=== PATIENT | female | born 1975 | race Caucasian/White ===

== ENCOUNTER → 2018-11-15 | Outpatient (CLI) | payer OTHER ==
--- NOTE | 2018-11-15 16:10 | KCIC ---
Bilateral digital screening mammograms: Reason for examination: Routine baseline screening. Interpretation was made with the benefit of CAD. The skin and nipples show no abnormalities. No abnormal axillary lymph nodes are seen. The breast parenchyma is heterogeneously dense. (Breast density: Category C.) There appears to be some nodular density seen in the left breast both medially and laterally probably at the 2:00 B in the 11:00 B positions. Recommend further evaluation with coned compression views in CC and lateral projection and left breast ultrasound. There are no suspicious calcifications. Impression: Small nodular densities seen in the left breast. Recommend further evaluation with coned compression views and ultrasound. Your patient's mammogram demonstrates that she has dense breast tissue (breast density category C or D), which could hide abnormalities, and if she has other risk factors for breast cancer that have been identified, she might benefit from supplemental screening tests that may be suggested by you as her ordering physician. Dense breast tissue, in and of itself, is a relatively common condition. Therefore, this information is not provided to cause undue concern, but rather to raise your awareness and to promote discussion with your patient regarding the presence of other risk factors, in addition to dense breast tissue. Your patient's mammography results will be sent to her. BI-RAD Category 0: Incomplete. Needs additional imaging evaluation. "Our facility is accredited by the [employer] Mammography [employer]." This patient's information has been entered into a reminder system for the patient to be notified with the results of her examination and a target date for the next mammogram. Electronically signed by: Jessica Paul MD (11/15/2018 4:06 PM) [id number]
== END | disposition home or self-care (01) ==
LOC: KCIC MAMMO 15:23
PROVIDERS: ATTEND Nurse Practitioner Family
DX: Z12.31 Encounter for screening mammogram for malignant neoplasm of breast (principal)
CPT/HCPCS: 77067

== ENCOUNTER → 2018-11-22 | Outpatient (CLI) | payer OTHER ==
--- NOTE | 2018-11-22 10:00 | RAD ---
DATE: 11/22/2018 EXAM: DIGITAL DIAGNOSTIC LT HISTORY: Abnormal screening mammogram COMPARISON: 11/15/2018 screen mammogram This study was interpreted with the benefit of Computerized Aided Detection (CAD). Breast Density: SCATTERED The breast parenchyma shows scattered fibroglandular densities. Breast parenchyma level B. FINDINGS: Spot compression imaging was performed at the left outer breast, left inner breast, and the left upper breast. No persistent suspicious mass lesion. IMPRESSION: Unremarkable. BI-RADS CATEGORY: 1 NEGATIVE RECOMMENDED FOLLOW-UP: 12M 12 MONTH FOLLOW-UP PQRS compliance statement: Patient information was entered into a reminder system with a target due date for the next mammogram. Mammography is a sensitive method for finding small breast cancers, but it does not detect them all and is not a substitute for careful clinical examination. A negative mammogram does not negate a clinically suspicious finding and should not result in delay in biopsying a clinically suspicious abnormality. "Our facility is accredited by the [employer] Mammography [employer]."
== END | disposition home or self-care (01) ==
LOC: MAMMO 09:33
PROVIDERS: ATTEND Nurse Practitioner Family
DX: R92.2 Inconclusive mammogram (principal)
CPT/HCPCS: 77065

== ENCOUNTER → 2020-07-18 | Outpatient (CLI) | payer OTHER ==
--- NOTE | 2020-07-18 11:46 | KCIC ---
Bilateral digital screening mammograms: Reason for examination: Routine screening. Comparison is made to previous studies dated 11/22/2018 and 11/15/2018. Interpretation was made with the benefit of CAD. The skin and nipples show no abnormalities. No abnormal axillary lymph nodes are seen. The breast par enchyma is heterogeneously dense. (Breast density: Category C.) There appear to be small parenchymal densities bilaterally which are new since previous exam. Further evaluation with coned compression vi ews and ultrasound is recommended. No suspicious calcifications are seen. Impression: Small parenchymal densities bilaterally which are new since previous exam. Recommend further evaluati on with coned compression views and ultrasound. Your patient's mammogram demonstrates that she has dense breast tissue (breast density category C or D), which could hide abnormalities, and if she has other risk factors for breast cancer that have bee n identified, she might benefit from supplemental screening tests that may be suggested by you as her ordering physician. Dense breast tissue, in and of itself, is a relatively common condition. Therefo re, this information is not provided to cause undue concern, but rather to raise your awareness and t o promote discussion with your patient regarding the presence of other risk factors, in addition to d ense breast tissue. Your patient's mammography results will be sent to her. BI-RAD Category 0: Incomplete. Needs additional imaging evaluation. "Our facility is accredited by the [employer] Mammography [employer]." This patient's information has been entered into a reminder system for the patient to be notified wit h the results of her examination and a target date for the next mammogram. Electronically signed by: Jessica Paul MD (07/18/2020 11:44 AM) [email or web address]
== END ==
LOC: KCIC MAMMO 10:53
PROVIDERS: ATTEND Nurse Practitioner Family
DX: Z12.31 Encounter for screening mammogram for malignant neoplasm of breast (principal)
CPT/HCPCS: 77067

== ENCOUNTER → 2020-08-08 | Outpatient (CLI) | payer OTHER ==
--- NOTE | 2020-08-08 12:18 | KCIC ---
Bilateral diagnostic digital mammograms: Reason for examination: Nodular parenchymal asymmetries on screening mammogram. Comparison is made to mammographic exam dated 07/18/2020. Coned compression views were obtained bilaterally in CC and lateral projections. With these additional views, there appears to be improvement in the nodularity and some of this paren chymal density appears to represent superimposed tissue. Further evaluation however with ultrasound w ill follow. IMPRESSION: Heterogeneously dense fibroglandular tissue with no suspicious-appearing nodules evident. Her son to follow. BI-RADS Category 0: Incomplete. Needs additional imaging evaluation. Bilateral breast ultrasound: Ultrasound examination was performed in the areas of mammographic concern and at the axilla. In the right breast at the 11:00 position 9 cm from the nipple, there is a small 6.1 mm hypoechoic ci rcumscribed lesion with a fibrocystic appearance lying in parallel orientation. No other cystic or so lid lesions are seen. No abnormal appearing lymph nodes are seen in right axilla. In the left breast, there is a small 5.8 mm hypoechoic fibrocystic type lesion with no other cystic o r solid nodules and no abnormal appearing lymph nodes in the left axilla. IMPRESSION: Benign-appearing fibrocystic masses bilaterally. Recommend 6 month follow-up with bilateral breast ul trasound. BI-RADS Category 3: Probably Benign. "Our facility is accredited by the [employer] Mammography [employer]." This patient's information has been entered into a reminder system for the patient to be notified wit h the results of her examination and a target date for the next mammogram. Electronically signed by: Jessica Paul MD (08/08/2020 12:15 PM) [id number]
== END ==
LOC: KCIC MAMMO 09:46
PROVIDERS: ATTEND Obstetrics & Gynecology
DX: N60.12 Diffuse cystic mastopathy of left breast (principal); N60.11 Diffuse cystic mastopathy of right breast
CPT/HCPCS: 76641; 77066